=== PATIENT | male | born 1980 | race Caucasian/White ===

== ENCOUNTER 2018-07-19 23:04 | Emergency (ER) | payer BC ==
[~2018-07-19] VITALS: Ht 180.3 cm; Wt 181.4 kg
[2018-07-19 23:08] VITALS: BP_SYST 148
--- NOTE | 2018-07-19 23:10 | NUR ---
Placed in room 04 . Side rails up. Report given to SHRADDHA Hernandez.
--- NOTE | 2018-07-19 23:15 | NUR ---
Patient AOx4, ambulatory, presents to ER with complaint of right ankle soreness and numbness x1 day. Patient states that he had been walking at [facility] all day. Patient states pain 7/10. Patient ambulatory with steady gait. States no injury to site. Patient states he applied tiger balm to site without relief. No other symptoms or complaints.
--- NOTE | 2018-07-19 23:25 | NUR ---
ER MD Wylie at bedside for medical evaluation.
[2018-07-19] MEDS ORDERED: KETOROLAC TROMETHAMINE 60 MG/2 ML VIAL IM ONE (23:45)
--- NOTE | 2018-07-19 23:49 | NUR ---
No adverse reactions noted after medication administration. Will continue to monitor.
[2018-07-19 23:50] VITALS: BP_SYST 142
--- NOTE | 2018-07-19 23:50 | NUR ---
Patient given written and verbal discharge instructions and verbalizes understanding. ER MD discussed with patient the results and treatment provided. Patient in stable condition. ID arm band removed. Rx of Tramadol and Motrin given. Patient educated on pain management and to follow up with PMD. Pain Scale 2/10 tolerable to patient. Opportunity for questions provided and answered. Medication side effect fact sheet provided.
== END 2018-07-19 23:50 | disposition home or self-care (01) ==
LOC: SED 23:04
DX: S96.911A Strain of unspecified muscle and tendon at ankle and foot level, right foot, initial encounter (principal); R03.0 Elevated blood-pressure reading, without diagnosis of hypertension; X58.XXXA Exposure to other specified factors, initial encounter; Y93.89 Activity, other specified; Y92.89 Other specified places as the place of occurrence of the external cause; Y99.8 Other external cause status
CPT/HCPCS: 96372; 99283; J1885